=== PATIENT | female | born 1985 | race Caucasian/White ===

== ENCOUNTER 2020-08-17 11:11 | Day surgery (SDC) | payer BC ==
[2020-08-17] MEDS ORDERED: Depo-Medrol 40 MG/ML IM ONE (11:12)
[2020-08-17] MEDS ORDERED: LIDOCAINE HCL 2% 100 MG/5 ML IJ ONE (11:12)
[2020-08-17] MEDS ORDERED: DIPRIVAN 200 MG/20 ML IV ONE (13:15)
--- NOTE | 2020-08-17 13:39 | XRAY ---
Indication: Bilateral L4-S1 MBB. Intraoperative fluoroscopy provided for 13 seconds. Single digital spot image submitted for interpretation demonstrates posterior needle tips projecting over the expected left and right L4-S1 nerve roots. Correlate with intraoperative findings/report.
--- NOTE | 2020-08-17 13:41 | XRAY ---
13 seconds fluoroscopy time in surgery for L4-S1 MBB.
[2020-08-17] MEDS ORDERED: Lactated Ringers 1,000 ML IV ONE (16:11)
== END 2020-08-17 13:42 | disposition home or self-care (01) ==
LOC: SDC-PAIN 11:11
PROVIDERS: ATTEND Psychiatry & Neurology Pain Medicine
DX: M47.816 Spondylosis without myelopathy or radiculopathy, lumbar region (principal); F41.8 Other specified anxiety disorders; Z79.899 Other long term (current) drug therapy
CPT/HCPCS: 64493; 64494; 72100; 77002; 84703; J1030; J2704